=== PATIENT | female | born 1950 | race African-American/Black ===

== ENCOUNTER 2017-07-24 12:04 | Emergency (ER) | payer MEDICAID, OTHER ==
[~2017-07-24] VITALS: Ht 167.6 cm; Wt 122.0 kg
[~2017-07-24 12:04] MED LIST: ASPI-1159 PO; BENAZEPRIL PO; HCTZ PO; METFORMIN PO; METOPROLOL PO; PRILOSEC PO; SIMVASTATIN PO
[2017-07-24] MEDS ORDERED: IBUPROFEN 600MG TABLET PO ONE (15:30)
[2017-07-24 17:00] VITALS: BP 154/88
== END 2017-07-24 19:08 | disposition home or self-care (01) ==
LOC: ER 13:10
DX: R51 Headache (principal); I10 Essential (primary) hypertension; E11.9 Type 2 diabetes mellitus without complications; E78.00 Pure hypercholesterolemia, unspecified; Z90.49 Acquired absence of other specified parts of digestive tract
CPT/HCPCS: 70450; 82962; 99284

== ENCOUNTER 2018-03-28 11:40 | Emergency (ER) | payer MEDICAID ==
[~2018-03-28] VITALS: Ht 167.6 cm; Wt 120.0 kg
[2018-03-28] MEDS ORDERED: ACETAMINOPHEN 325MG TABLET PO ONE (12:15)
[2018-03-28] MEDS ORDERED: ONDANSETRON HCL 4MG TABLET PO ONE (12:30)
[2018-03-28 12:59] VITALS: BP 131/73
== END 2018-03-28 13:09 | disposition home or self-care (01) ==
LOC: ER 12:01
DX: H66.92 Otitis media, unspecified, left ear (principal); I10 Essential (primary) hypertension; E11.9 Type 2 diabetes mellitus without complications; E78.00 Pure hypercholesterolemia, unspecified; Z90.49 Acquired absence of other specified parts of digestive tract; Z98.51 Tubal ligation status; Z90.10 Acquired absence of unspecified breast and nipple
CPT/HCPCS: 99283; Q0162; Z7610

== ENCOUNTER 2018-08-01 16:55 | Emergency (ER) | payer MEDICAID ==
[~2018-08-01] VITALS: Ht 167.6 cm; Wt 117.0 kg
[2018-08-01 20:50] VITALS: BP 176/99
== END 2018-08-01 20:35 | disposition left against medical advice (07) ==
LOC: ER 16:55
DX: R05 Cough (principal); R07.89 Other chest pain; Z53.21 Procedure and treatment not carried out due to patient leaving prior to being seen by health care provider

== ENCOUNTER 2019-06-10 21:33 | Inpatient (IN) | payer OTHER, MEDICAID ==
[~2019-06-10] VITALS: Ht 167.6 cm; Wt 116.6 kg
[~2019-06-10 21:33] MED LIST changes: -ASPI-1159 PO; +ASPI-1393 PO
[2019-06-10] MEDS ORDERED: ONDANSETRON HCL 4MG/2ML INJ IV STA (23:48)
[2019-06-10] MEDS ORDERED: SODIUM CHLORIDE 0.9% 1,000 ML IV ONE (23:48)
[2019-06-10] MEDS ORDERED: MORPHINE SULFATE 4 MG/ML CPJ (NOT FOR IM USE) IV STA (23:48)
[2019-06-11] MEDS ORDERED: MORPHINE SULFATE 4 MG/ML CPJ (NOT FOR IM USE) IV ONE
[2019-06-11 00:04] LABS: CLARITY URINE CLEAR (CLEAR); COLOR URINE YELLOW (YELLOW); KETONES URINE NEGATIVE (NEGATIVE); LEUKOCYTE ESTERASE URINE 2+ (NEGATIVE); NITRITE URINE NEGATIVE (NEGATIVE); OCCULT BLOOD URINE NEGATIVE (NEGATIVE); PH URINE 5.5 (4.5-8.0); PROTEIN URINE NEGATIVE (NEGATIVE); SPECIFIC GRAVITY URINE 1.018 (1.005-1.030)
[2019-06-11 01:18] LABS: CHLORIDE 101 mEq/L (98-107)
[2019-06-11 01:54] LABS: BASOPHILS % 0.7 % (0.0-2.0); EOSINOPHILS % 2.6 % (0.0-5.0); HEMATOCRIT. 36.8 % (36.0-48.0); HEMOGLOBIN. 12.3 g/dL (12.0-16.0); LYMPHOCYTES % 39.8 % (20.0-50.0); MEAN CORPUSCULAR HEMOGLOBIN 29.7 pg (28.0-32.0); MEAN CORPUSCULAR VOLUME 88.8 fL (81.0-99.0); MONOCYTES % 6.1 % (2.0-8.0); NEUTROPHILS % 50.8 % (40.0-76.0); PLATELET 240 x1000/uL (130-400); RED BLOOD CELL COUNT 4.15 mill/uL (4.2-5.4); RED CELL DISTRIBUTION WIDTH 15.8 % (11.6-14.6)
[2019-06-11] MEDS ORDERED: IOHEXOL-300 100 ML BOTTLE ONE (03:05)
[2019-06-11] MEDS ORDERED: CEFTRIAXONE 1 G PREMIX 50 ML IV SCH (05:00)
[2019-06-11 08:00] VITALS: BP 138/63
[2019-06-11] MEDS ORDERED: CLONIDINE 0.1MG TABLET PO PRN (10:45)
[2019-06-11] MEDS ORDERED: ACETAMINOPHEN 325MG TABLET PO PRN (10:45)
[2019-06-11] MEDS ORDERED: ONDANSETRON HCL 4MG/2ML INJ IV PRN (10:45)
[2019-06-11] MEDS ORDERED: DIPHENHYDRAMINE 50MG/ML VIAL IV PRN (10:45)
[2019-06-11] MEDS ORDERED: DEXTROSE 50% WATER 50ML SYRINGE IV PRN (10:45)
[2019-06-11] MEDS ORDERED: MORPHINE SULFATE 4 MG/ML CPJ (NOT FOR IM USE) IV PRN (10:45)
[2019-06-11 12:00] VITALS: BP 147/75
[2019-06-11 13:23] VITALS: BP 146/85
[2019-06-11 16:00] VITALS: BP 157/78
[2019-06-11] MEDS: BLOOD SUGAR DIAGNOSTIC STRIP TEST SCH ×2 (17:34→21:00)
[2019-06-11] MEDS: SODIUM CHLORIDE 0.9% 1,000 ML IV SCH (17:35)
[2019-06-11] MEDS: LEVOFLOXACIN 500MG PREMIX 100 ML IV SCH (17:36)
[2019-06-11] MEDS: INSULIN LISPRO 100 UNITS/ML SUBCUT SCH ×2 (17:37→21:00)
[2019-06-11] MEDS ORDERED: CARISOPRODOL 350 MG TABLET PO PRN (18:00)
[2019-06-11 20:00] VITALS: BP 114/71
[2019-06-12] VITALS: BP 140/62
[2019-06-12 04:00] VITALS: BP 132/82
[2019-06-12] MEDS: BLOOD SUGAR DIAGNOSTIC STRIP TEST SCH ×2 (07:20→12:56)
[2019-06-12 07:41] LABS: EOSINOPHILS % 2.6 % (0.0-5.0); HEMATOCRIT. 37.1 % (36.0-48.0); HEMOGLOBIN. 12.4 g/dL (12.0-16.0); LYMPHOCYTES % 38.7 % (20.0-50.0); MEAN CORPUSCULAR HEMOGLOBIN 29.8 pg (28.0-32.0); MEAN CORPUSCULAR VOLUME 88.9 fL (81.0-99.0); MEAN PLATELET VOLUME 9.5 fl (7.4-10.4); NEUTROPHILS % 51.7 % (40.0-76.0); PLATELET 230 x1000/uL (130-400); RED BLOOD CELL COUNT 4.17 mill/uL (4.2-5.4); RED CELL DISTRIBUTION WIDTH 16.4 % (11.6-14.6)
[2019-06-12] MEDS: INSULIN LISPRO 100 UNITS/ML SUBCUT SCH ×2 (07:50→12:50)
[2019-06-12 08:55] LABS: CHLORIDE 107 mEq/L (98-107)
[2019-06-12 12:00] VITALS: BP 154/87
[2019-06-12] MEDS: LEVOFLOXACIN 500MG PREMIX 100 ML IV SCH (13:17)
[2019-06-12] MEDS: SODIUM CHLORIDE 0.9% 1,000 ML IV SCH (13:49)
[2019-06-12 15:26] VITALS: BP 154/87
[2019-06-12 16:00] VITALS: BP 150/82
== END 2019-06-12 16:15 | disposition home or self-care (01) | DRG 40 ==
LOC: ER 21:33 → 6EST 06-11 05:03 → EDBEDREQ 06-11 05:11 → EDBEDREQSVC 06-11 05:11 → EDBEDREQDT 06-11 05:11 → EDBEDREQTM 06-11 05:11 → ENRESERV 06-11 07:17 → 6EST 06-11 08:21 → UNDODISIN 06-11 23:35
PROVIDERS: ADMIT Internal Medicine; ATTEND Internal Medicine
DX: G95.9 Disease of spinal cord, unspecified (principal); N12 Tubulo-interstitial nephritis, not specified as acute or chronic; E11.9 Type 2 diabetes mellitus without complications; E66.9 Obesity, unspecified; E78.00 Pure hypercholesterolemia, unspecified; I10 Essential (primary) hypertension; M54.10 Radiculopathy, site unspecified; Z83.3 Family history of diabetes mellitus; Z85.3 Personal history of malignant neoplasm of breast; Z90.11 Acquired absence of right breast and nipple; Z90.49 Acquired absence of other specified parts of digestive tract; Z92.3 Personal history of irradiation; Z92.21 Personal history of antineoplastic chemotherapy; Z98.51 Tubal ligation status; Z79.899 Other long term (current) drug therapy; Z68.41 Body mass index [BMI] 40.0-44.9, adult; Z79.82 Long term (current) use of aspirin
CPT/HCPCS: 36415; 71045; 74177; 80048; 81003; 82962; 83605; 93005; 93970; 96361; 96365; 96375; 99285; J0696; J1956; J2270; J2405; J7030; Q9967

== ENCOUNTER 2019-08-05 06:18 | Emergency (ER) | payer MEDICAID ==
[~2019-08-05] VITALS: Ht 167.6 cm; Wt 117.0 kg
[2019-08-05 06:35] VITALS: BP 139/87
[2019-08-05] MEDS ORDERED: ACETAMINOPHEN 325MG TABLET PO ONE (07:30)
[2019-08-05] MEDS ORDERED: KETOROLAC 30MG/ML VIAL IM ONE (08:45)
== END 2019-08-05 09:47 | disposition home or self-care (01) ==
LOC: ER 06:45
DX: H65.192 Other acute nonsuppurative otitis media, left ear (principal); H92.02 Otalgia, left ear; E11.9 Type 2 diabetes mellitus without complications; E78.00 Pure hypercholesterolemia, unspecified; I10 Essential (primary) hypertension; Z98.51 Tubal ligation status; Z85.3 Personal history of malignant neoplasm of breast; Z79.82 Long term (current) use of aspirin; Z79.899 Other long term (current) drug therapy
CPT/HCPCS: 96372; 99283; J1885

== ENCOUNTER 2022-04-16 13:45 | Emergency (ER) | payer MEDICAID ==
[~2022-04-16] VITALS: Ht 162.6 cm; Wt 120.0 kg
[~2022-04-16 13:45] MED LIST changes: -ASPI-1393 PO; +ASPI-1497 PO
[2022-04-16 15:16] LABS: CHLORIDE 104 mEq/L (98-107)
[2022-04-16 15:28] LABS: HEMATOCRIT. 40.4 % (36.0-48.0); HEMOGLOBIN. 13.1 g/dL (12.0-16.0); MEAN CORPUSCULAR HEMOGLOBIN 29.4 pg (28.0-32.0); MEAN CORPUSCULAR VOLUME 90.5 fL (81.0-99.0); MEAN PLATELET VOLUME 10.1 fl (7.4-10.4); PLATELET 203 x1000/uL (130-400); RED BLOOD CELL COUNT 4.46 mill/uL (4.2-5.4); RED CELL DISTRIBUTION WIDTH 15.5 % (11.6-14.6)
[2022-04-16] MEDS ORDERED: ACETAMINOPHEN 500MG TABLET PO ONE (15:30)
[2022-04-16] MEDS ORDERED: GUAI600T26 MT ×2 (16:24)
[2022-04-16] MEDS ORDERED: ACET-2708 MT ×2 (16:24)
[2022-04-16 16:33] VITALS: BP 147/84
[2022-04-16 17:03] LABS: PLATELET ESTIMATE NORMAL
[2022-04-17] MEDS ORDERED: GUAI600T26 MT (12:43)
[2022-04-17] MEDS ORDERED: ACET-2708 MT (12:43)
== END 2022-04-16 16:34 | disposition home or self-care (01) ==
LOC: ER 13:45
DX: B34.9 Viral infection, unspecified (principal); R05.9 Cough, unspecified; E11.9 Type 2 diabetes mellitus without complications; E78.00 Pure hypercholesterolemia, unspecified; I10 Essential (primary) hypertension; Z98.51 Tubal ligation status; Z20.822 Contact with and (suspected) exposure to COVID-19
CPT/HCPCS: 36415; 71045; 80053; 85025; 87426; 87804; 99284; C9803

== ENCOUNTER 2022-05-17 23:44 | Emergency (ER) | payer MEDICAID ==
[~2022-05-17] VITALS: Ht 165.1 cm; Wt 118.0 kg
[~2022-05-17 23:44] MED LIST changes: +ACET-2708 MT; +GUAI600T26 MT
[2022-05-18] MEDS ORDERED: METOCLOPRAMIDE HCL 5MG TABLET PO ONE (02:00)
[2022-05-18] MEDS ORDERED: ACETAMINOPHEN 325MG TABLET PO ONE (02:00)
[2022-05-18 03:23] LABS: BASOPHILS % 0.6 % (0.0-2.0); EOSINOPHILS % 1.2 % (0.0-5.0); HEMATOCRIT. 41.6 % (36.0-48.0); HEMOGLOBIN. 13.8 g/dL (12.0-16.0); LYMPHOCYTES % 50.8 % (20.0-50.0); MEAN CORPUSCULAR HEMOGLOBIN 30.4 pg (28.0-32.0); MEAN CORPUSCULAR VOLUME 91.9 fL (81.0-99.0); MONOCYTES % 4.8 % (2.0-8.0); NEUTROPHILS % 42.6 % (40.0-76.0); PLATELET 246 x1000/uL (130-400); RED BLOOD CELL COUNT 4.53 mill/uL (4.2-5.4); RED CELL DISTRIBUTION WIDTH 15.6 % (11.6-14.6)
[2022-05-18 03:26] LABS: CHLORIDE 103 mEq/L (98-107)
[2022-05-18] MEDS ORDERED: ACET-2708 MT (04:26)
[2022-05-18] MEDS ORDERED: METO-293 MT (04:26)
[2022-05-18] MEDS ORDERED: AMOX1TAB16 MT (04:26)
[2022-05-18] MEDS ORDERED: AMOXICILLIN/POTASSIUM CLAVULANATE 875/125MG TAB PO NR (04:30)
[2022-05-18 04:40] VITALS: BP 135/70
== END 2022-05-18 04:45 | disposition home or self-care (01) ==
LOC: ER 23:44
DX: H66.92 Otitis media, unspecified, left ear (principal); R51.9 Headache, unspecified; I10 Essential (primary) hypertension; E11.9 Type 2 diabetes mellitus without complications; E78.00 Pure hypercholesterolemia, unspecified; Z86.73 Personal history of transient ischemic attack (TIA), and cerebral infarction without residual deficits; Z90.49 Acquired absence of other specified parts of digestive tract; Z85.9 Personal history of malignant neoplasm, unspecified; Z98.51 Tubal ligation status; Z79.82 Long term (current) use of aspirin; Z79.84 Long term (current) use of oral hypoglycemic drugs
CPT/HCPCS: 36415; 70450; 80053; 85025; 99284; J8597

== ENCOUNTER 2023-08-19 22:23 | Emergency (ER) | payer MEDICAID ==
[~2023-08-19] VITALS: Ht 167.6 cm; Wt 119.0 kg
[~2023-08-19 22:23] MED LIST changes: +AMOX1TAB16 MT; +METO-293 MT
[2023-08-19 22:34] VITALS: TEMP 97.7; O2SAT 99
[2023-08-19 23:46] LABS: BASOPHILS % 0.4 % (0.0-2.0); EOSINOPHILS % 0.9 % (0.0-5.0); HEMATOCRIT. 40.2 % (36.0-48.0); HEMOGLOBIN. 12.9 g/dL (12.0-16.0); LYMPHOCYTES % 47.6 % (20.0-50.0); MEAN CORPUSCULAR HEMOGLOBIN 29.4 pg (28.0-32.0); MEAN CORPUSCULAR HGB CONC 32.1 g/dL (31.0-37.0); MEAN CORPUSCULAR VOLUME 91.7 fL (81.0-99.0); MEAN PLATELET VOLUME 9.3 fl (7.4-10.4); NEUTROPHILS % 46.1 % (40.0-76.0); PLATELET 257 x1000/uL (130-400); RED BLOOD CELL COUNT 4.38 mill/uL (4.2-5.4); RED CELL DISTRIBUTION WIDTH 15.5 % (11.6-14.6); WHITE BLOOD COUNT 5.7 x1000/uL (4.5-11.0)
[2023-08-20 00:06] LABS: ALANINE AMINOTRANSFERASE 28 IU/L (10-49); ALBUMIN 4.3 g/dL (3.2-4.8); ASPARTATE AMINOTRANSFERASE 25 IU/L (<34); BILIRUBIN TOTAL 0.4 mg/dL (0.1-1.0); CALCIUM 9.9 mg/dL (8.7-10.4); CARBON DIOXIDE 26 mEq/L (21-32); CHLORIDE 104 mEq/L (98-107); CREATININE 0.9 mg/dL (0.6-1.0); GLUCOSE 121 mg/dL (70-105); POTASSIUM 4.4 mEq/L (3.5-5.1); PROTEIN TOTAL 8.8 g/dL (6.0-8.3); SODIUM 138 mEq/L (136-145); TROPONIN I HIGH SENSITIVITY 8 ng/L (3.0-34); UREA NITROGEN BLOOD 15 mg/dL (9-23)
[2023-08-20] MEDS ORDERED: ALBU90AE INH (01:58)
[2023-08-20 02:18] VITALS: BP 157/91; PULSE 91; RESP 18
== END 2023-08-20 02:20 | disposition home or self-care (01) ==
LOC: ER 22:32
DX: R05.9 Cough, unspecified (principal); R09.81 Nasal congestion; J02.9 Acute pharyngitis, unspecified; E11.9 Type 2 diabetes mellitus without complications; E78.00 Pure hypercholesterolemia, unspecified; I10 Essential (primary) hypertension; Z98.51 Tubal ligation status; Z79.899 Other long term (current) drug therapy
CPT/HCPCS: 36415; 71045; 80053; 83880; 84484; 85025; 93005; 99285

== ENCOUNTER 2023-12-24 08:26 | Emergency (ER) | payer MEDICAID ==
[~2023-12-24] VITALS: Ht 165.1 cm; Wt 119.7 kg
[~2023-12-24 08:26] MED LIST changes: +ALBU90AE INH
[2023-12-24 08:38] VITALS: O2SAT 100
[2023-12-24] MEDS ORDERED: ACETAMINOPHEN 325MG TABLET PO ONE (10:00)
[2023-12-24] MEDS: ACETAMINOPHEN 325MG TABLET PO NR (11:30)
[2023-12-24 15:34] VITALS: BP 148/87; PULSE 89; RESP 16; TEMP 98.3
== END 2023-12-24 15:46 | disposition home or self-care (01) ==
LOC: ER 08:26
DX: M79.604 Pain in right leg (principal); E11.9 Type 2 diabetes mellitus without complications; E78.00 Pure hypercholesterolemia, unspecified; I10 Essential (primary) hypertension; Z98.51 Tubal ligation status; Z85.9 Personal history of malignant neoplasm, unspecified; Z79.899 Other long term (current) drug therapy
CPT/HCPCS: 73562; 73590; 73610; 73630; 93971; 99284

== ENCOUNTER 2024-04-08 11:18 | Emergency (ER) | payer MEDICAID ==
[~2024-04-08] VITALS: Ht 162.6 cm; Wt 60.0 kg
[2024-04-08 11:53] VITALS: O2SAT 100
[2024-04-08] MEDS: ACETAMINOPHEN 325MG TABLET PO STA (12:50)
[2024-04-08] MEDS ORDERED: NAPR-681 MT (14:26)
[2024-04-08 16:07] VITALS: BP 145/89; PULSE 84; RESP 16; TEMP 36.83628; O2SAT 100
== END 2024-04-08 16:08 | disposition home or self-care (01) ==
LOC: ER 11:18
DX: M25.562 Pain in left knee (principal); M79.662 Pain in left lower leg; I10 Essential (primary) hypertension; E11.9 Type 2 diabetes mellitus without complications; E78.5 Hyperlipidemia, unspecified; E78.00 Pure hypercholesterolemia, unspecified; Z90.49 Acquired absence of other specified parts of digestive tract; Z98.51 Tubal ligation status
CPT/HCPCS: 73562; 73590; 93971; 99284

== ENCOUNTER 2024-05-02 08:33 | Inpatient (IN) | payer MEDICAID ==
[~2024-05-02] VITALS: Ht 167.6 cm; Wt 115.2 kg
[~2024-05-02 08:33] MED LIST changes: +NAPR-681 MT
[2024-05-02] MEDS ORDERED: ONDANSETRON 4MG ODT PO ONE (09:15)
[2024-05-02 09:44] LABS: BASOPHILS % 0.4 % (0.0-2.0); DIFFERENTIAL COMMENT 0; EOSINOPHILS % 1.1 % (0.0-5.0); HEMOGLOBIN. 14.2 g/dL (12.0-16.0); LYMPHOCYTES % 42.6 % (20.0-50.0); MEAN CORPUSCULAR VOLUME 93.5 fL (81.0-99.0); MEAN PLATELET VOLUME 9.4 fl (7.4-10.4); MONOCYTES % 5.7 % (2.0-8.0); NEUTROPHILS % 50.2 % (40.0-76.0); PLATELET 258 x1000/uL (130-400); RED BLOOD CELL COUNT 4.91 mill/uL (4.2-5.4); RED CELL DISTRIBUTION WIDTH 15.6 % (11.6-14.6); WHITE BLOOD COUNT 5.1 x1000/uL (4.5-11.0)
[2024-05-02 09:46] LABS: CLARITY URINE CLEAR (CLEAR); COLOR URINE YELLOW (YELLOW); GLUCOSE URINE 3+ (NEGATIVE); KETONES URINE NEGATIVE (NEGATIVE); LEUKOCYTE ESTERASE URINE 1+ (NEGATIVE); NITRITE URINE NEGATIVE (NEGATIVE); OCCULT BLOOD URINE NEGATIVE (NEGATIVE); PROTEIN URINE TRACE (NEGATIVE); UROBILINOGEN URINE 0.2 E.U./dL (0.2-1.0)
[2024-05-02 10:08] LABS: CHLORIDE 105 mEq/L (98-107); POTASSIUM 3.9 mEq/L (3.5-5.1); SODIUM 139 mEq/L (136-145)
[2024-05-02 10:09] LABS: INR 0.9; PROTHROMBIN TIME 10.4 sec (9.6-11.0)
[2024-05-02 10:10] LABS: CALCIUM 9.5 mg/dL (8.7-10.4); CARBON DIOXIDE 26 mEq/L (21-32)
[2024-05-02 10:15] LABS: CREATININE 0.9 mg/dL (0.6-1.0); GLUCOSE 162 mg/dL (70-105); TROPONIN I HIGH SENSITIVITY 7 ng/L (3.0-34); UREA NITROGEN BLOOD 9 mg/dL (9-23)
[2024-05-02 10:16] LABS: ALANINE AMINOTRANSFERASE 12 IU/L (10-49)
[2024-05-02 10:17] LABS: ALBUMIN 4.4 g/dL (3.2-4.8); ASPARTATE AMINOTRANSFERASE 21 IU/L (<34); BILIRUBIN TOTAL 0.5 mg/dL (0.1-1.0); PROTEIN TOTAL 8.3 g/dL (6.0-8.3)
[2024-05-02 10:18] LABS: BILIRUBIN DIRECT < 0.1 mg/dL (<=3.0)
[2024-05-02] MEDS: ACETAMINOPHEN 325MG TABLET PO ONE (10:30)
[2024-05-02] MEDS: SODIUM CHLORIDE 0.9% 1,000 ML IV ONE (10:30)
[2024-05-02] MEDS: METOCLOPRAMIDE HCL 10MG/2ML VIAL IV ONE (10:30)
[2024-05-02] MEDS: ASPIRIN 325MG EC TABLET PO ONE (10:30)
[2024-05-02 10:37] LABS: SQUAMOUS EPITHELIAL CELL URINE 1+ /lpf (RARE/1+)
[2024-05-02 10:38] LABS: RBC URINE 0-2 /hpf (0-2)
[2024-05-02 10:40] LABS: BACTERIA URINE 1+
[2024-05-02] MEDS: CEFTRIAXONE 1GM/50ML 50 ML IV NR (12:10)
[2024-05-02] MEDS ORDERED: DEXTROSE 50% WATER 50ML SYRINGE IV PRN (12:45)
[2024-05-02] MEDS ORDERED: MAGNESIUM/ALUMINUM HYDROXIDE/SIMETHICONE 30ML UDC PO PRN (12:45)
[2024-05-02] MEDS ORDERED: ONDANSETRON HCL 4MG/2ML INJ IV PRN (12:45)
[2024-05-02] MEDS ORDERED: CLONIDINE 0.1MG TABLET PO PRN (12:45)
[2024-05-02] MEDS ORDERED: ACETAMINOPHEN 325MG TABLET PO PRN (12:45)
[2024-05-02] MEDS ORDERED: IPRATROPIUM/ALBUTEROL 0.5-3(2.5)MG/3ML NEB HHN PRN (12:45)
[2024-05-02] MEDS: LABETALOL 5MG/ML 4ML INJ IV SCH (12:53)
[2024-05-02] MEDS: AMLODIPINE 10MG TABLET PO NR (15:05)
[2024-05-02] MEDS: FUROSEMIDE 20MG TABLET PO SCH (15:18)
[2024-05-02] MEDS: BLOOD SUGAR DIAGNOSTIC STRIP TEST SCH (16:52)
[2024-05-02] MEDS: INSULIN LISPRO 100 UNITS/ML SUBCUT SCH (17:15)
[2024-05-02] MEDS: ENOXAPARIN 30MG/0.3ML SYR SUBCUT SCH (18:05)
[2024-05-02] MEDS: HYDROCHLOROTHIAZIDE 25MG TABLET PO SCH (18:05)
[2024-05-02] MEDS: ACETAMINOPHEN 325MG TABLET PO PRN (19:57)
[2024-05-02 21:45] LABS: CREATINE KINASE 53 IU/L (34-145)
[2024-05-02 21:46] LABS: TROPONIN I HIGH SENSITIVITY 9 ng/L (3.0-34)
[2024-05-02 22:15] VITALS: BP 153/74; PULSE 80; RESP 19; TEMP 36.00288; O2SAT 96
[2024-05-02] MEDS: ATORVASTATIN CALCIUM 40MG TABLET PO SCH (22:36)
[2024-05-03] VITALS: BP 146/77; PULSE 78; RESP 19; TEMP 36.22512; O2SAT 97
[2024-05-03 00:59] VITALS: BP 153/74; PULSE 80; RESP 19; TEMP 36.0288
[2024-05-03 04:00] VITALS: BP 152/72; PULSE 82; RESP 18; TEMP 36.55848; O2SAT 99
[2024-05-03] MEDS: PANTOPRAZOLE 40MG DR TABLET PO SCH (05:56)
[2024-05-03] MEDS ORDERED: OMEPRAZOLE 20MG CAPSULE EXTENDED RELEASE PO SCH (06:45)
[2024-05-03 08:00] VITALS: BP 144/72; PULSE 85; RESP 18; TEMP 36.78072; O2SAT 95
[2024-05-03] MEDS: AMLODIPINE 10MG TABLET PO SCH (09:18)
[2024-05-03] MEDS: NITROFURANTOIN 100MG M/M CAPSULE PO SCH (09:18)
[2024-05-03] MEDS: ASPIRIN 81MG EC TABLET PO SCH (09:18)
[2024-05-03] MEDS: LISINOPRIL 10MG TABLET PO SCH (09:19)
[2024-05-03 10:18] LABS: CHLORIDE 100 mEq/L (98-107); POTASSIUM 3.5 mEq/L (3.5-5.1); SODIUM 135 mEq/L (136-145)
[2024-05-03 10:19] LABS: CALCIUM 9.9 mg/dL (8.7-10.4); CARBON DIOXIDE 26 mEq/L (21-32)
[2024-05-03 10:24] LABS: CREATININE 0.9 mg/dL (0.6-1.0); GLUCOSE 203 mg/dL (70-105); TRIGLYCERIDE 164 mg/dL (0-150); TROPONIN I HIGH SENSITIVITY 9 ng/L (3.0-34); UREA NITROGEN BLOOD 10 mg/dL (9-23)
[2024-05-03 10:25] LABS: LDL CHOLESTEROL 268 mg/dL (5-100)
[2024-05-03 10:26] LABS: CHOLESTEROL 340 mg/dL (<200); CREATINE KINASE 54 IU/L (34-145); HDL CHOLESTEROL 63 mg/dL (>65)
[2024-05-03 10:27] LABS: T4 FREE 1.37 ng/dL (0.89-1.76)
[2024-05-03 10:28] LABS: THYROID STIMULATING HORMONE 1.43 uIU/mL (0.55-4.78)
[2024-05-03 12:00] VITALS: BP 152/82; PULSE 83; RESP 18; TEMP 37.00296; O2SAT 96
[2024-05-03 12:22] LABS: BASOPHILS % 0.7 % (0.0-2.0); EOSINOPHILS % 0.8 % (0.0-5.0); HEMATOCRIT. 44.7 % (36.0-48.0); HEMOGLOBIN. 14.5 g/dL (12.0-16.0); MEAN CORPUSCULAR HEMOGLOBIN 29.3 pg (28.0-32.0); MEAN CORPUSCULAR HGB CONC 32.4 g/dL (31.0-37.0); MEAN PLATELET VOLUME 9.6 fl (7.4-10.4); MONOCYTES % 6.9 % (2.0-8.0); NEUTROPHILS % 52.6 % (40.0-76.0); PLATELET 277 x1000/uL (130-400); RED BLOOD CELL COUNT 4.94 mill/uL (4.2-5.4); RED CELL DISTRIBUTION WIDTH 15.5 % (11.6-14.6); WHITE BLOOD COUNT 4.5 x1000/uL (4.5-11.0)
[2024-05-03 12:24] LABS: MEAN CORPUSCULAR VOLUME 90.6 fL (81.0-99.0)
[2024-05-03 13:37] VITALS: BP 152/82; PULSE 83; TEMP 98.6; O2SAT 100
== END 2024-05-03 15:05 | disposition home or self-care (01) | DRG 199 ==
LOC: ER 08:33 → 5WST 11:35 → EDBEDREQ 11:39 → EDBEDREQTM 11:39 → 8WST 21:48
PROVIDERS: ADMIT Internal Medicine; ATTEND Internal Medicine
DX: I16.0 Hypertensive urgency (principal); E11.65 Type 2 diabetes mellitus with hyperglycemia; N39.0 Urinary tract infection, site not specified; E78.00 Pure hypercholesterolemia, unspecified; I10 Essential (primary) hypertension; Z86.73 Personal history of transient ischemic attack (TIA), and cerebral infarction without residual deficits; Z90.11 Acquired absence of right breast and nipple; Z85.3 Personal history of malignant neoplasm of breast; Z79.82 Long term (current) use of aspirin; Z79.899 Other long term (current) drug therapy
CPT/HCPCS: 36415; 71045; 80048; 80061; 80076; 81003; 82550; 82962; 83036; 84145; 84439; 84443; 84484; 85025; 93005; 99291; J0696; J1650; J2765; J3490; J7030